=== PATIENT | female | born 1940 | race Caucasian/White ===

== ENCOUNTER 2016-12-08 11:49 | Observation (INO) ==
--- NOTE | 2016-12-08 12:31 | Emergency Department Note ---
Disposition Clinical Impression: Unstable angina pectoris Chest pain Qualifiers: Chest pain type: unspecified Qualified Code(s): R07.9 - Chest pain, unspecified Disposition: Admitted As Inpatient Condition: Fair Time of Disposition: 14:00 Chest Pain HPI - General Chief Complaint: ED Chest Pain Stated Complaint: chest pain Time Seen by Provider: 12/08/16 11:57 Source: patient Mode of arrival: ambulatory Limitations: no limitations Vital Signs Reviewed: Yes Nursing Notes Reviewed: Yes - History of Present Illness HPI Narrative: Patient is a 76-year-old female presents to the emergency department with chest pain with past medical history of atrial fibrillation, diabetes, hypertension, hypertriglyceridemia, and heart stent placed 20 years ago. The patient states the chest pain awoke her at 3 AM this morning from sleep. She describes the pain as left-sided and sharp without radiation. The chest pain occurred at least 3 times throughout the night and lasted for seconds. The last episode being prior to arrival. She describes the chest pain as a 9 out of 10 pain. Nothing makes the pain better or worse. She denies any shortness of breath, cough, back pain, nausea or vomiting or abdominal pain. She states when she woke up from the chest initially she was diaphoretic. When asked about her nitroglycerin allergies she stated that she does not have an allergic reaction her blood pressure just lowers when she takes the medication Pt complaint: chest pain Onset (ago): hour(s) Time: 03:00 Duration: intermittent, gradually worsening Onset: awoke with symptoms Pain Location: left chest Severity: moderate Severity scale (1-10): 9 Quality: sharp Pain Radiation: none Improves with: nothing Worsens with: nothing Associated symptoms: Reports: diaphoresis. Denies: nausea, vomiting, dyspnea, sense of impending doom, syncope, palpitations, fever, cough Treatments prior to arrival chest pain: none - Related Data On Oral Contraceptives: No Home Medications Medication Instructions Recorded Confirmed Aspirin 81 mg PO DAILY 09/30/15 12/08/16 Atenolol [Tenormin] 50 mg PO DAILY 09/30/15 12/08/16 Canagliflozin [Invokana] 100 mg PO DAILY 09/30/15 12/08/16 Gemfibrozil [Lopid] 600 mg PO BID 09/30/15 12/08/16 Glimepiride [Amaryl] 4 mg PO BID 09/30/15 12/08/16 Hydrochlorothiazide [Microzide] 12.5 mg PO DAILY 09/30/15 12/08/16 Metformin HCl [Glucophage] 1,000 mg PO BID 09/30/15 12/08/16 Multivitamin [Multivitamins] 1 tab PO DAILY 09/30/15 12/08/16 NIFEdipine [Nifedipine ER] 30 mg PO DAILY 09/30/15 12/08/16 Ubidecarenone [Coq10] 50 mg PO DAILY 09/30/15 12/08/16 Acetaminophen [Tylenol] 1,000 mg PO Q6HR PRN 07/25/16 12/08/16 Warfarin perPT [Coumadin perPT] 5 mg PO QPM 07/25/16 12/08/16 Allergies Allergy/AdvReac Type Severity Reaction Status Date / Time azithromycin Allergy Hives Verified 06/29/16 04:32 Penicillins Allergy Hives Verified 06/29/16 04:32 ranitidine [From Zantac] Allergy Rash Verified 06/29/16 04:32 nitroglycerin AdvReac Hypotension Verified 12/08/16 14:15 All systems ED: reviewed and negative except as stated. Constitutional: Reports: as per HPI. Denies: fever, chills, weakness Cardiovascular: Reports: as per HPI, chest pain. Denies: palpitations, dyspnea on exertion, orthopnea, edema Respiratory: Reports: as per HPI. Denies: cough, dyspnea, wheezes Gastrointestinal: Reports: as per HPI. Denies: abdominal pain, nausea, vomiting Genitourinary: Reports: as per HPI Musculoskeletal: Reports: as per HPI. Denies: back pain, neck pain Integumentary: Reports: as per HPI Neurological: Reports: as per HPI Psychiatric: Reports: as per HPI Hematological/Lymphatic: Reports: as per HPI Chest Pain PMH - Past Medical History Medical history: Reports: arthritis, atrial fibrillation, coronary artery disease, diabetes, GERD, hyperlipidemia, hypertension Surgical history: Reports: angioplasty/stent, appendectomy, cholecystectomy, ALANNA /BSO Psychiatric history: Reports: no psych history AGRIBUSINESS PROFESSOR history: Reports: no AGRIBUSINESS PROFESSOR history - Social History Smoking Status: Never smoker Alcohol use: Reports: none Drug use: Reports: none Physical Exam - General Limitations: no limitations General appearance: alert, in no apparent distress - Head Head exam: atraumatic, normocephalic - Eye Eye exam: Present: normal appearance, PERRL, EOMI - Neck Neck exam: Present: normal inspection, full ROM, trachea midline - Chest Chest inspection: Present: normal inspection, symmetric chest wall rise. Absent : tenderness, rash - Respiratory Respiratory exam: Present: normal lung sounds bilaterally. Absent: respiratory distress, wheezes, stridor, prolonged expiratory phase - Cardiovascular Cardiovascular exam: Present: regular rate, normal rhythm, normal heart sounds. Absent: systolic murmur, diastolic murmur, rubs, gallop - Expanded Cardiovascular Exam Peripheral pulses: 2+: radial (R), radial (L), dorsalis pedis (R), dorsalis pedis (L) - Abdominal Exam Abdominal exam: Present: soft, Non-Tender, normal bowel sounds. Absent: tenderness, distention, guarding, rebound - Extremities Exam Extremities exam: Present: joint swelling (see other), other (Patient left ankle appears swollen. When asked the patient states she is waiting to have an Achilles tendon transplant that is the cause of the swelling. She denies any changes to the ankle. Denies any calf tenderness.) - Expanded Lower Extremity Exam Upper leg exam: Present: normal inspection - Back Exam Back exam: Present: normal inspection - Neurological Exam Neurological exam: Present: alert, oriented X3 - Psychiatric Psychiatric exam: Present: normal affect, normal mood - Skin Skin exam: Present: warm, dry, normal color. Absent: cyanosis, diaphoresis, pallor Course Course Narrative: Patient is a 76-year-old female presents to the ER with left-sided sharp chest pain that started at 3:00 this morning has been intermittent throughout the night lasting seconds having a total of about 3 episodes. The patient has a past medical history of a coronary artery disease with stent placement greater than 20 years ago, new onset A. fib, diabetes, and hypertriglyceridemia. The patient's EKG showed diffuse ST changes including some chronic and some new T- wave inversions in multiple leads when compared to the previous EKG done in June 2016. The plan is to do a cardiac workup on this patient and admit for ACS rule out. - Reevaluation(s) Reevaluation #1: Discussed the labs, EKG findings and chest x-ray with Mrs. Waggoner. I discussed the need to admit her to the hospital for ACS rule out. The patient understands and agrees with the plan. Her repeat EKG done at 13:24 was unchanged from her previous. Time: 14:00 Vital Signs Temperature 98.1 F 12/08/16 12:04 Pulse Rate 61 12/08/16 12:04 Respiratory Rate 16 12/08/16 12:04 Blood Pressure 147/72 12/08/16 12:04 O2 Sat by Pulse Oximetry 95 12/08/16 12:04 Temperature 97.3 F L 12/08/16 18:40 Pulse Rate 63 12/08/16 18:40 Respiratory Rate 18 12/08/16 18:40 Blood Pressure 125/77 12/08/16 18:40 O2 Sat by Pulse Oximetry 95 12/08/16 18:40 Oxygen Delivery Oxygen Delivery Room Air Chest Pain - Medical Records Medical records reviewed: Yes I reviewed the patient's medical records. - Lab Data Lab results reviewed: Yes I reviewed the patient's lab results. Result diagrams: 12/08/16 12:45 12/08/16 12:45 Lab Results 12/08/16 12/08/16 12/08/16 Range/Units 12:45 12:45 12:45 WBC 6.4 (4.3-11.1) K/mcL RBC 5.42 H (3.82-4.97) M/mcL Hgb 15.8 H (11.5-15.4) g/dL Hct 46.7 H (35.3-44.9) % MCV 86.2 (83.0-100.0) fL MCH 29.2 (28.0-33.3) pg MCHC 33.8 (31.6-35.5) g/dL RDW 13.2 (11.5-14.5) % Plt Count 318 (140-400) K/mcL MPV 9.6 (9.4-12.4) fL Immature Gran % 0.3 (0-4) % Seg Neutrophils % 57.6 % Lymphocytes % 31.4 % Monocytes % 9.6 % Eosinophils % 0.6 % Basophils % 0.5 % Neutrophils # 3.7 (1.6-8.9) K/mcL Lymphocytes # 2.0 (0.6-4.6) K/mcL Monocytes # 0.6 (0.0-1.3) K/mcL Eosinophils # 0.0 (0.0-0.6) K/mcL Basophils # 0.0 (0.0-0.2) K/mcL PT (9.4-12.1) Seconds INR Sodium 139 (136-145) mEq/L Potassium 3.4 L (3.5-4.5) mEq/L Chloride 101 (98-109) mEq/L Carbon Dioxide 26 (19-29) mEq/L BUN 19 (7-20) mg/dL Creatinine 0.80 (0.57-1.11) mg/dL Est GFR ( Amer) > 60 (> 60) Est GFR (Non-Af Amer) > 60 (> 60) BUN/Creatinine Ratio 24 (6-26) Glucose 154 H (70-99) mg/dL Calculated Osmolality 293 (280-300) Calcium 11.2 H (8.6-10.8) mg/dL Troponin I 0.00 (0-0.03) ng/mL 12/08/16 Range/Units 12:45 WBC (4.3-11.1) K/mcL RBC (3.82-4.97) M/mcL Hgb (11.5-15.4) g/dL Hct (35.3-44.9) % MCV (83.0-100.0) fL MCH (28.0-33.3) pg MCHC (31.6-35.5) g/dL RDW (11.5-14.5) % Plt Count (140-400) K/mcL MPV (9.4-12.4) fL Immature Gran % (0-4) % Seg Neutrophils % % Lymphocytes % % Monocytes % % Eosinophils % % Basophils % % Neutrophils # (1.6-8.9) K/mcL Lymphocytes # (0.6-4.6) K/mcL Monocytes # (0.0-1.3) K/mcL Eosinophils # (0.0-0.6) K/mcL Basophils # (0.0-0.2) K/mcL PT 30.7 H (9.4-12.1) Seconds INR 2.8 Sodium (136-145) mEq/L Potassium (3.5-4.5) mEq/L Chloride (98-109) mEq/L Carbon Dioxide (19-29) mEq/L BUN (7-20) mg/dL Creatinine (0.57-1.11) mg/dL Est GFR ( Amer) (> 60) Est GFR (Non-Af Amer) (> 60) BUN/Creatinine Ratio (6-26) Glucose (70-99) mg/dL Calculated Osmolality (280-300) Calcium (8.6-10.8) mg/dL Troponin I (0-0.03) ng/mL - Radiology Data Radiology results reviewed: Yes I reviewed the patient's radiology results. Chest X-Ray 12/08/16 12:20 IMPRESSION: Stable chest. No acute cardiopulmonary findings. D/ / Christi Pearson MD / Christi Pearson MD Interpreting Provider: Christi Pearson MD - EKG Data EKG attestation: Yes I reviewed and interpreted this EKG. EKG shows normal: sinus rhythm Rate: normal Rhythm: NSR [place]/QRS: normal T wave inversions noted in: I, aVL, v2, v5, v6 QTc: other (444) When compared to previous EKG there are: changes noted (T-wave inversions new in lead V2 and V5 and V6 that are new from her last EKG that was done on 2016) Heart Score - Score History: Highly Suspicious EKG: Significant ST-Depression Age: Greater than 65 Risk Factors: Equal/Greater than 3 risk factor or history of atherosclerotic disease Troponin: Less than normal limit HEART Score Total: 8 S.B.A.R. - Raphael Situation: Demographics Background: Presenting Complaint Assessment: Vital Signs, Course and respsone to treatment, Patient/Family Expectation, Pertinant Lab Results S.B.A.ROzzie Report Given to: Dr. Major Lim Repor Time: 13:59
[2016-12-08] MEDS ORDERED: Aspirin 81 MG TAB.CHEW PO STA (12:33)
[2016-12-08] MEDS ORDERED: Nitroglycerin 0.4 MG TAB.SUBL SL PRN (12:38)
[2016-12-08 12:53] LABS: Basophils % 0.5 %; Eosinophils % 0.6 %; Hematocrit 46.7 % (35.3-44.9); Hemoglobin 15.8 g/dL (11.5-15.4); Immature Granulocytes % 0.3 % (0-4); Lymphocytes % 31.4 %; Mean Corpuscular HGB Conc 33.8 g/dL (31.6-35.5); Mean Corpuscular Hemoglobin 29.2 pg (28.0-33.3); Mean Corpuscular Volume 86.2 fL (83.0-100.0); Mean Platelet Volume 9.6 fL (9.4-12.4); Monocytes # 0.6 K/mcL (0.0-1.3); Monocytes % 9.6 %; Neutrophils # 3.7 K/mcL (1.6-8.9); Platelet Count 318 K/mcL (140-400); Red Blood Count 5.42 M/mcL (3.82-4.97); Red Cell Distribution Width 13.2 % (11.5-14.5); Segmented Neutrophils % 57.6 %
--- NOTE | 2016-12-08 12:59 | Emergency Department Note ---
START Narrative - START START: I examined this patient and my medical decision-making was reviewed with the PLATFORM POWER TECHNICIAN/PA/Advanced Practice Nurse/Resident Physician. I agree with the documented findings, disposition and treatment plan as described except to the extent set forth below. Patient to the emergency department with a chief complaint of chest pain. Sharp. She describes 3 episodes today. History coronary disease with a stent placement 21 years ago. Recently diagnosed with A. fib. She is anticoagulated. Denies shortness of breath. She is pain-free on my evaluation. On examination she is in no acute distress. Her lungs are clear. Her pain is not reproducible. Plan. Cardiac workup. EKG shows extensive ST changes. Mostly these are chronic but there are some new acute T-wave inversions. Repeat EKG. Likely admission.
[2016-12-08 13:04] LABS: BUN/Creatinine Ratio 24 (6-26); Blood Urea Nitrogen 19 mg/dL (7-20); Calcium 11.2 mg/dL (8.6-10.8); Carbon Dioxide 26 mEq/L (19-29); Chloride 101 mEq/L (98-109); Glucose 154 mg/dL (70-99); INR 2.8; Osmolality,Calculated 293 (280-300); Potassium 3.4 mEq/L (3.5-4.5); Prothrombin Time 30.7 Seconds (9.4-12.1); Sodium 139 mEq/L (136-145); eGFR For African Americans > 60 (> 60); eGFR For Non-African Americans > 60 (> 60)
--- NOTE | 2016-12-08 16:46 | Internal Med History&Physical ---
<Piotr Bentley - Last Filed: 12/08/16 17:05> Date of Encounter: 12/08/16 Time of Encounter: 16:20 Assessment and Plan (1) Chest pain Current visit: Yes Status: Acute Nuclear stress test has been ordered. -Patient has a significant history of CAD. -Must rule out cardiac ischemia. -EKG changes are significant for diffuse ST changes, as well as inverted T waves , likely due to an old infarct. -Continue medications; Patient takes atenolol and aspirin. Qualifiers: Chest pain type: unspecified Qualified Code(s): R07.9 - Chest pain, unspecified (2) Atrial fibrillation Current visit: Yes Status: Acute Continue taking medications. Patient takes both atenolol and aspirin. Qualifiers: Qualified Code(s): I48.91 - Unspecified atrial fibrillation (3) Essential hypertension Current visit: No Status: Chronic (4) Diabetes mellitus, type II Current visit: No Status: Chronic Patient is diabetic home meds have been held for the time being. Patient will be placed on insulin, and blood glucose will be monitored on a regular basis. Qualifiers: Diabetes mellitus complication status: with circulatory complication Diabetes mellitus complication detail: with other circulatory complications Qualified Code(s): E11.59 - Type 2 diabetes mellitus with other circulatory complications (5) Diastolic heart failure Current visit: Yes Status: Acute Patient has moderate left ventricular diastolic dysfunction. Qualifiers: Qualified Code(s): I50.30 - Unspecified diastolic (congestive) heart failure Internal Medicine - H&P: HPI Chief complaint: Chest Pain Admitted From: Emergency Dept Plans for Post Hospital Care: Home History of present illness: Ms. Waggoner is a 76 year old female who presented to the emergency department with a chief complaint of chest pain. She states that this pain began approximately 3 AM and woke her from sleep. She describes this pain as short, intermittent bursts of sharp, left-sided chest pain. Each episode would last for several seconds, would subside, and then continue again. These episodes happened a total of 3 times before she came to the ED at approximately 7 AM. She rated her pain at 9/10. Nothing makes her pain better or worse. On admission, she denies shortness of breath, cough, back pain, nausea, vomiting, or abdominal pain. She does say that she experienced some sweating when she woke up at night. She denies having any pain like this before. She has had a heart attack in the past, but states that the pain associated with her previous heart attack was somewhat different from the pain she is experiencing now. Patient states that she had several more episodes of pain while she was in the emergency department, but that after she left the ED, she did not experience any more episodes of chest pain. Patient was seen and examined at bedside this afternoon. She currently denies having any chest pain, shortness of breath, nausea, vomiting, sweating, or abdominal pain. Past Med Surg Social Fam HX - Past Medical History Medical history: arthritis, atrial fibrillation, coronary artery disease, diabetes, GERD, hyperlipidemia, hypertension Psychiatric history: no psych history - Past Surgical History Surgical History: angioplasty/stent, appendectomy, cholecystectomy, ALANNA/BSO - Social History Smoking Status: Never smoker Alcohol use: none Drug use: none Activity Level: Independent ambulation - Family History Mother Living Status: Cause of : Colon Cancer Father Living Status: Cause of : Renal Cancer Hx Family Cardiac Disorders: Yes (Father had CAD) Internal Medicine - H&P: Meds Aspirin 81 mg PO DAILY 09/30/15 [History] Atenolol [Tenormin] 50 mg PO DAILY 09/30/15 [History] Canagliflozin [Invokana] 100 mg PO DAILY 09/30/15 [History] Gemfibrozil [Lopid] 600 mg PO BID 09/30/15 [History] Glimepiride [Amaryl] 4 mg PO BID 09/30/15 [History] Hydrochlorothiazide [Microzide] 12.5 mg PO DAILY 09/30/15 [History] Metformin HCl [Glucophage] 1,000 mg PO BID 09/30/15 [History] Multivitamin [Multivitamins] 1 tab PO DAILY 09/30/15 [History] NIFEdipine [Nifedipine ER] 30 mg PO DAILY 09/30/15 [History] Ubidecarenone [Coq10] 50 mg PO DAILY 09/30/15 [History] Acetaminophen [Tylenol] 1,000 mg PO Q6HR PRN 07/25/16 [History] Warfarin perPT [Coumadin perPT] 5 mg PO QPM 07/25/16 [History] Allergies azithromycin Allergy (Verified 06/29/16 04:32) Hives Penicillins Allergy (Verified 06/29/16 04:32) Hives ranitidine [From Zantac] Allergy (Verified 06/29/16 04:32) Rash nitroglycerin Adverse Reaction (Verified 12/08/16 14:15) Hypotension All Systems PM: A 10-system review of systems was performed and is negative for pertinent findings except as documented above in the HPI. - Constitutional Constitutional: night sweats Additional comments: Patient states that she did experience some sweating when she woke up from her chest pain. - EENT Eyes: no change in vision Nose, mouth and throat: no dysphagia, no neck pain - Cardiovascular Cardiovascular ROS IM: no chest pain, no diaphoresis, no dyspnea, no lightheadedness, no palpitations, no syncope Additional comments: Patient currently denies having any chest pain. - Respiratory Respiratory: no cough, no dyspnea, no wheezing, no excessive phlegm production - Gastrointestinal Gastrointestinal: no nausea, no vomiting - Musculoskeletal Musculoskeletal ROS IM: deformity Additional comments: Patient does have a deformity on her Achilles tendon. The area is swollen, and patient is awaiting transplant. - Constitutional Vitals: Temp Pulse Resp BP Pulse Ox 97.8 F 54 15 126/75 96 12/08/16 15:18 12/08/16 15:18 12/08/16 15:18 12/08/16 15:18 12/08/16 15:18 - Head Head exam: Present: atraumatic, normocephalic - Neck Neck exam general surgery: Present: supple, trachea midline. Absent: lymphadenopathy - Respiratory Respiratory exam: Present: CTAB. Absent: accessory muscle use, rales, rhonchi, wheezes - Cardiovascular Cardiovascular exam: Present: RRR, +S1, +S2. Absent: diastolic murmur, gallop, rubs, systolic murmur - GI/Abdominal GI/Abdominal exam: Present: normal bowel sounds, soft, no peritoneal signs. Absent: distended, tenderness - Extremities Exam Extremities exam: Present: warm, radial pulses palpable and symetrical. Absent : calf tenderness, cyanotic, pedal edema - Skin Skin exam: Present: dry, intact Internal Med - H&P Results - Labs CBC & Chem 7: 12/08/16 12:45 12/08/16 12:45 <Maciel Golden - Last Filed: 12/08/16 19:52> Date of Encounter: 12/08/16 Assessment and Plan (1) Atypical chest pain Current visit: Yes Status: Acute (2) Atrial fibrillation Current visit: Yes Status: Acute Qualifiers: Atrial fibrillation type: chronic Qualified Code(s): I48.2 - Chronic atrial fibrillation (3) Diastolic heart failure Current visit: Yes Status: Acute Qualifiers: Heart failure chronicity: chronic Qualified Code(s): I50.32 - Chronic diastolic (congestive) heart failure (4) Diabetes mellitus, type II Current visit: No Status: Chronic Qualifiers: Diabetes mellitus complication status: with circulatory complication Diabetes mellitus complication detail: with other circulatory complications Qualified Code(s): E11.59 - Type 2 diabetes mellitus with other circulatory complications Internal Medicine - H&P: HPI History of present illness: Ms. Waggoner is a 76 year old female All Systems PM: A 10-system review of systems was performed and is negative for pertinent findings except as documented above in the HPI. - Constitutional Vitals: Temp Pulse Resp BP Pulse Ox 97.3 F L 63 18 125/77 95 12/08/16 18:40 12/08/16 18:40 12/08/16 18:40 12/08/16 18:40 12/08/16 18:40 Internal Med - H&P Results - Labs CBC & Chem 7: 12/08/16 12:45 12/08/16 12:45 - Attending Attestation I examined this patient and my medical decision-making was reviewed with the Resident Physician on 12/08/16. I agree with the documented findings, disposition and treatment plan as described except to the extent set forth below. 76 y/o female with hx CAD presents with atypical chest pain. Intermittent and sharp with no associated symptoms. No worsening or alleviating factors. Recurred in ED so placed in observation. Exam Alert. Comfortable Mucus membranes moist Heart reg Lungs clear Abd soft No edema I/P 1. Atypical chest pain 2. CAD 3. a fib on coumadin 4. DM Stress test in AM. Further diagnoses and plan as above.
[2016-12-08] MEDS ORDERED: Acetaminophen 325 MG TABLET PO PRN (16:52)
[2016-12-08] MEDS ORDERED: Dextrose Gel 15 GM PO PRN ×2 (16:56)
[2016-12-08] MEDS ORDERED: *HR* Dextrose 50 % in Water (Syg) 50 ML SYRINGE IVP PRN (16:56)
[2016-12-08] MEDS ORDERED: D5% in Water 1,000 ML IVC PRN (16:56)
[2016-12-08] MEDS ORDERED: *HR* Warfarin 5 MG TABLET PO SCH (18:00)
[2016-12-08] MEDS ORDERED: Warfarin perPT PO SCH (18:00)
[2016-12-08] MEDS ORDERED: Warfarin perPT PO PRN (18:00)
[2016-12-08] MEDS: *HR* Glimepiride 4 MG TABLET PO SCH (19:11)
[2016-12-08] MEDS ORDERED: Insulin LISPRO 300 UNITS/3 ML VIAL SQ SCH (21:00)
[2016-12-09] MEDS ORDERED: Regadenoson 0.4 MG/5 ML SYRINGE IVP ONE (06:59)
[2016-12-09] MEDS ORDERED: Insulin LISPRO 300 UNITS/3 ML VIAL SQ SCH (07:30)
[2016-12-09] MEDS ORDERED: NIFEdipine XL (24 HR) 30 MG TAB.ER.24 PO SCH (09:00)
[2016-12-09] MEDS ORDERED: Multivit/Ca/Min/Fe/FA 1 TAB TABLET PO SCH (09:00)
[2016-12-09] MEDS ORDERED: (Ubidecarenone [Coq10] 50 MG) PO SCH (09:00)
[2016-12-09] MEDS ORDERED: Aspirin 81 MG TAB.CHEW PO SCH (09:00)
[2016-12-09] MEDS ORDERED: hydroCHLOROthiazide 25 MG TABLET PO SCH (09:00)
[2016-12-09 10:13] LABS: INR 2.5; Prothrombin Time 27.5 Seconds (9.4-12.1)
[2016-12-09] MEDS: *HR* Glimepiride 4 MG TABLET PO SCH (10:43)
[2016-12-09 11:01] VITALS: BP 143/83
--- NOTE | 2016-12-09 11:06 | Nuclear Medicine Stress Report ---
Regadenoson Nuclear Stress Name: Vicki Waggoner Date of Study: 12/09/2016 Date: 1940 Ht: 62.0 in Medical Record#: [id number] Age: 76 Wt: 164.0 lb Gender: Female Order #: [id number] Location: [facility] Room: [facility] Supervising Provider: Janusz Reynolds CNP Reading Physician: Telly Leon MD, [facility] Ordering Physician: Niecy Field CNP Primary Care Physician: Sheldon Joiner DO Stress Technologist: Samantha Weeks SUPERVISOR [employer], [employer] Fisheries Biologist: Clau Castano Indications: Chest Pain Impression: Non-specific ST-T wave changes were noted with regadenoson. Gated LVEF > 70%. Perfusion imaging was negative for ischemia or infarct. History: Hypertension Diabetes Hypercholesteremia Prior PCI Stress Test Summary: Stress Test Type: Pharmacologic Regadenoson 0.4mg/5ml given IV Baseline Information: Initial Heart Rate: 56 Blood Pressure: 130/72 Stress Information: Test Terminated Due to (primary): As per protocol Maximum Blood Pressure: 152/76 Maximum Heart Rate: 86 Percent Maximum Heart Rate Achieved: 60 Double Product: [id number] Symptoms: No chest pain Nuclear Summary: SPECT myocardial perfusion imaging using Tc99m Sestamibi given intravenously was performed at rest and following cardiac stress testing. The resting images were obtained following initial dose of 11.3 mCi. Following stress an additional dose of 35.3 mCi was given at peak exercise or 30 seconds post regadenoson infusion. Findings: Stress Note * Resting ECG demonstrated sinus bradycardia, lateral ST-T wave abnormalities. * No baseline arrhythmias were noted. * Patient had no chest pain during stress. * No arrhythmias were noted during stress. * Non-specific ST-T wave changes were noted with regadenoson. Hemodynamic responses * Normal hemodynamic responses to pharmacologic stress. Study Quality * Study quality is average. Gated EF > 70% * Gated LVEF > 70%. Left Ventricle * The left ventricle is not dilated. * Normal Segmental Perfusion in rest. * Normal segmental perfusion in stress. * Inferior wall artifact noted on resting images. TID * No evidence of transient ischemic dilatation. Updated by Telly Leon MD, [facility] on 12/09/2016 11:01:51 AM electronically signed on 12/09/2016 11:02:13 AM with status of Final
--- NOTE | 2016-12-09 11:56 | Discharge Summary ---
Date of Encounter: 12/09/16 Time of Encounter: 11:54 - Discharge Diagnosis (1) Chest pain Priority: Primary Status: Acute Qualifiers: Chest pain type: unspecified Qualified Code(s): R07.9 - Chest pain, unspecified (2) Atrial fibrillation Priority: Secondary Status: Chronic Qualifiers: Atrial fibrillation type: chronic Qualified Code(s): I48.2 - Chronic atrial fibrillation (3) Diabetes mellitus, type II Priority: Secondary Status: Chronic Qualifiers: Diabetes mellitus complication status: with circulatory complication Diabetes mellitus complication detail: with other circulatory complications Diabetes mellitus alf insulin use: without alf use Qualified Code( s): E11.59 - Type 2 diabetes mellitus with other circulatory complications (4) Diastolic heart failure Priority: Secondary Status: Chronic Qualifiers: Heart failure chronicity: chronic Qualified Code(s): I50.32 - Chronic diastolic (congestive) heart failure (5) Essential hypertension Priority: Secondary Status: Chronic - Discharge Medications Prescriptions: Ezetimibe [Zetia] 10 mg PO DAILY #30 tablet Metoprolol XL (24 HR) Succ [Toprol Xl] 25 mg PO DAILY #30 tab.er.24h Home Medications: Aspirin 81 mg PO DAILY 09/30/15 [History] Canagliflozin [Invokana] 100 mg PO DAILY 09/30/15 [History] Gemfibrozil [Lopid] 600 mg PO BID 09/30/15 [History] Glimepiride [Amaryl] 4 mg PO BID 09/30/15 [History] Hydrochlorothiazide [Microzide] 12.5 mg PO DAILY 09/30/15 [History] Metformin HCl [Glucophage] 1,000 mg PO BID 09/30/15 [History] Multivitamin [Multivitamins] 1 tab PO DAILY 09/30/15 [History] NIFEdipine [Nifedipine ER] 30 mg PO DAILY 09/30/15 [History] Ubidecarenone [Coq10] 50 mg PO DAILY 09/30/15 [History] Acetaminophen [Tylenol] 1,000 mg PO Q6HR PRN 07/25/16 [History] Warfarin perPT [Coumadin perPT] 5 mg PO QPM 07/25/16 [History] Ezetimibe [Zetia] 10 mg PO DAILY #30 tablet 12/09/16 [Rx] Metoprolol XL (24 HR) Succ [Toprol Xl] 25 mg PO DAILY #30 tab.er.24h 12/09/16 [ Rx] Allergies/Adverse Reactions: Allergies azithromycin Allergy (Verified 06/29/16 04:32) Hives Penicillins Allergy (Verified 06/29/16 04:32) Hives ranitidine [From Zantac] Allergy (Verified 06/29/16 04:32) Rash nitroglycerin Adverse Reaction (Verified 12/08/16 14:15) Hypotension Procedures/tests Complete & Pending: Procedures Performed prior 72 hours Category Date Time Status NM deric perf SPECT multi [NM] Routine Exams 12/08/16 17:03 Taken SP pharm nuclear stress Routine Y 12/09/16 07:45 Completed Date of admission: 12/08/16 14:03 Primary care physician: Kit Joiner - Patient Status Disposition: Home, Self-Care Condition: Good Functional capacity at discharge: independent ambulation Overall status at discharge: patient is progressing back to baseline - Discharge Instructions Instructions: Metoprolol (By mouth), Ezetimibe (By mouth), Atrial Fibrillation (DC), Chest Pain (DC) Follow Up With: Clau Ding [employer] [Advanced Practice Nurse] - 12/15/16 11:00 am - Diet and Activity Activity: resume usual activities as tolerated Diet: diabetic diet, low fat, low cholesterol, low salt diet Interval History: Patient reports an episode of left-sided chest pain earlier this morning that lasted a few seconds. She denies any chest pain at this time. No shortness of breath. She has been ambulating and eating well. She is eager to go home. Hospital course: Ms. Waggoner is a 76 year old female with a past medical history of atrial fibrillation, CAD, diabetes and hypertension who presented with a chief complaint of atypical chest pain. Troponins were negative. EKG showed no acute ischemic changes. Impression no acute process. She underwent her stress test that was negative. She was continued on aspirin and her atenolol was switched to metoprolol. She was prescribed zetia. Plan: Follow-up with primary care physician in one week. - Time Spent with Patient Total time spent providing and/or coordinating discharge services: - Constitutional Vitals: Temp Pulse Resp BP Pulse Ox 97.5 F L 65 16 143/83 95 12/09/16 11:01 12/09/16 11:01 12/09/16 11:01 12/09/16 11:01 12/09/16 11:01 General appearance: Present: cooperative, A&O X 3, pleasant, no acute distress, answers questions appropriately - Eye Eye exam: Present: PERRL, sclera anicteric - Respiratory Respiratory exam: Present: CTAB - Cardiovascular Cardiovascular exam: Present: RRR - GI/Abdominal GI/Abdominal exam: Present: normal bowel sounds, soft. Absent: distended, tenderness - Extremities Exam Extremities exam: Absent: pedal edema - Back Exam Back exam: Absent: CVA tenderness (L), CVA tenderness (R) - Neurological Exam Neurological exam: Present: alert, oriented X3, no focal deficits, strengths equal and symetr throughout. Absent: facial droop, speech deficit - Skin Skin exam: Absent: rash
--- NOTE | 2016-12-09 16:11 | Electrocardiograph Report ---
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
--- NOTE | 2016-12-09 16:12 | Electrocardiograph Report ---
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
== END 2016-12-09 14:00 | disposition home or self-care (01) ==
LOC: EMEROO 11:49 → 3BNU 11:49 → SUATTDRO 14:03 → 3BNU 15:00
PROVIDERS: ADMIT Internal Medicine; ATTEND Internal Medicine

== ENCOUNTER 2020-09-28 17:16 | Inpatient (IN) ==
[2020-09-28] MEDS ORDERED: 0.9 % Sodium Chloride 500 ML IVC ONE (17:34)
[2020-09-28] MEDS ORDERED: Aspirin 81 MG TAB.CHEW PO ONE (17:42)
[2020-09-28 17:57] LABS: Basophils % 0.4 %; Eosinophils % 0.7 %; Hematocrit 42.8 % (35.3-44.9); Hemoglobin 14.2 g/dL (11.5-15.4); Immature Granulocytes % 0.4 % (0-4); Lymphocytes % 36.9 %; Mean Corpuscular HGB Conc 33.2 g/dL (31.6-35.5); Mean Corpuscular Hemoglobin 29.6 pg (28.0-33.3); Mean Corpuscular Volume 89.4 fL (83.0-100.0); Mean Platelet Volume 9.6 fL (9.4-12.4); Monocytes # 0.5 K/mcL (0.0-1.3); Monocytes % 9.2 %; Neutrophils # 2.8 K/mcL (1.6-8.9); Platelet Count 299 K/mcL (140-400); Red Blood Count 4.79 M/mcL (3.82-4.97); Red Cell Distribution Width 12.9 % (11.5-14.5); Segmented Neutrophils % 52.4 %; White Blood Count 5.4 K/mcL (4.3-11.1)
[2020-09-28 18:04] LABS: INR 2.5
[2020-09-28 18:06] LABS: Activated Partial Thrombo Time 65.9 Seconds (26.0-36.0)
[2020-09-28 18:15] LABS: BUN/Creatinine Ratio 24 (6-26); Blood Urea Nitrogen 22 mg/dL (8-23); Calcium 10.8 mg/dL (8.6-10.3); Carbon Dioxide 26 mEq/L (23-29); Chloride 99 mEq/L (98-107); Glucose 308 mg/dL (70-105); Osmolality,Calculated 299 (280-300); Potassium 3.6 mEq/L (3.5-5.1); Sodium 137 mEq/L (136-145); Troponin I < 0.03 ng/mL (< 0.04); eGFR For African Americans > 60 (> 60); eGFR For Non-African Americans > 60 (> 60)
[2020-09-28] MEDS ORDERED: Perflutren Lipid Microsphere 1.3 ML in 0.9 % Sodium Chloride 8.7 ML IVP PRN (20:21)
[2020-09-28] MEDS ORDERED: D5% in Water 1,000 ML IVC PRN (20:26)
[2020-09-28] MEDS ORDERED: *HR* Dextrose 50 % in Water (Vial) 50 ML VIAL IVP PRN (20:26)
[2020-09-28] MEDS ORDERED: Dextrose Gel 15 GM/37.5 ML TUBE PO PRN ×2 (20:26)
[2020-09-28] MEDS ORDERED: Ondansetron 4 MG/2 ML VIAL IVP PRN (20:39)
[2020-09-28] MEDS ORDERED: Naloxone 0.4 MG/ML INJ IVP PRN (20:39)
[2020-09-28] MEDS ORDERED: Melatonin 3 MG TABLET PO PRN (20:39)
[2020-09-28 21:14] LABS: INR 2.3; Prothrombin Time 26.5 Seconds (9.4-12.1)
[2020-09-28 21:16] LABS: Estimated Average Glucose 189 mg/dl; Hemoglobin A1C 8.2 %
[2020-09-28] MEDS: Insulin LISPRO 300 UNITS/3 ML VIAL SUBQ SCH (22:12)
[2020-09-28] MEDS: gemfibroziL 600 MG TABLET PO SCH (22:12)
[2020-09-28] MEDS: Mag Hydrox/Al Hydrox/Simeth 30 ML UDC PO PRN (22:23)
[2020-09-29 00:50] LABS: Basophils # 0.1 K/mcL (0.0-0.2); Basophils % 0.7 %; Eosinophils # 0.1 K/mcL (0.0-0.6); Hematocrit 40.2 % (35.3-44.9); Hemoglobin 12.7 g/dL (11.5-15.4); Immature Granulocytes % 0.4 % (0-4); Lymphocytes # 2.6 K/mcL (0.6-4.6); Lymphocytes % 36.7 %; Mean Corpuscular HGB Conc 31.6 g/dL (31.6-35.5); Mean Corpuscular Hemoglobin 28.8 pg (28.0-33.3); Mean Corpuscular Volume 91.2 fL (83.0-100.0); Mean Platelet Volume 9.7 fL (9.4-12.4); Monocytes # 0.8 K/mcL (0.0-1.3); Monocytes % 11.5 %; Neutrophils # 3.5 K/mcL (1.6-8.9); Platelet Count 290 K/mcL (140-400); Red Blood Count 4.41 M/mcL (3.82-4.97); Segmented Neutrophils % 49.7 %; White Blood Count 7.1 K/mcL (4.3-11.1)
[2020-09-29 00:51] LABS: BUN/Creatinine Ratio 28 (6-26); Blood Urea Nitrogen 23 mg/dL (8-23); Carbon Dioxide 26 mEq/L (23-29); Chloride 103 mEq/L (98-107); Chol/HDL Ratio 7.1 (0-4.9); Cholesterol 212 mg/dL (< 200); Glucose 186 mg/dL (70-105); HDL Cholesterol 30 mg/dL (40-59); LDL Cholesterol,Calculated 120 mg/dL (< 100); Osmolality,Calculated 295 (280-300); Potassium 3.6 mEq/L (3.5-5.1); Sodium 138 mEq/L (136-145); Triglycerides 311 mg/dL (< 150); eGFR For African Americans > 60 (> 60); eGFR For Non-African Americans > 60 (> 60)
[2020-09-29 00:56] LABS: INR 2.3
[2020-09-29] MEDS ORDERED: Regadenoson 0.4 MG/5 ML SYRINGE IVP ONE (06:51)
[2020-09-29] MEDS ORDERED: Ubidecarenone [Coq10] 50 MG PO SCH (09:00)
[2020-09-29] MEDS: Insulin LISPRO 300 UNITS/3 ML VIAL SUBQ SCH ×4 (10:19→21:14)
[2020-09-29] MEDS: Aspirin 81 MG TAB.CHEW PO SCH (10:24)
[2020-09-29] MEDS: hydroCHLOROthiazide 25 MG TABLET PO SCH (10:24)
[2020-09-29] MEDS: gemfibroziL 600 MG TABLET PO SCH (10:24)
[2020-09-29] MEDS: Isosorbide MONOnitrate (24 HR) 30 MG TAB.ER.24H PO SCH (12:14)
[2020-09-29] MEDS ORDERED: Warfarin perPT PO PRN (18:00)
[2020-09-29] MEDS ORDERED: *HR* Warfarin 5 MG TABLET PO ONE (18:00)
[2020-09-29] MEDS: Acetaminophen 325 MG TABLET PO PRN (21:18)
[2020-09-30 03:30] LABS: Hematocrit 38.7 % (35.3-44.9); Hemoglobin 12.6 g/dL (11.5-15.4); Mean Corpuscular HGB Conc 32.6 g/dL (31.6-35.5); Mean Corpuscular Hemoglobin 29.2 pg (28.0-33.3); Mean Corpuscular Volume 89.8 fL (83.0-100.0); Mean Platelet Volume 9.5 fL (9.4-12.4); Platelet Count 285 K/mcL (140-400); Red Blood Count 4.31 M/mcL (3.82-4.97); Red Cell Distribution Width 12.9 % (11.5-14.5); White Blood Count 5.7 K/mcL (4.3-11.1)
[2020-09-30 03:37] LABS: INR 1.8; Prothrombin Time 20.9 Seconds (9.4-12.1)
[2020-09-30 03:50] LABS: Alanine Aminotransferase 25 Units/L (7-52); Albumin 3.9 g/dL (3.5-5.7); Albumin/Globulin Ratio 1.5 (1.1-2.2); Alkaline Phosphatase 42 Units/L (34-104); Aspartate Amino Transferase 24 Units/L (13-39); BUN/Creatinine Ratio 37 (6-26); Bilirubin,Total 0.5 mg/dL (0.3-1.0); Blood Urea Nitrogen 25 mg/dL (8-23); Calcium 10.2 mg/dL (8.6-10.3); Carbon Dioxide 23 mEq/L (23-29); Chloride 105 mEq/L (98-107); Globulin 2.6 g/dL (2.4-3.5); Glucose 136 mg/dL (70-105); Osmolality,Calculated 296 (280-300); Potassium 3.4 mEq/L (3.5-5.1); Sodium 140 mEq/L (136-145); Total Protein 6.5 g/dL (6.4-8.9); eGFR For African Americans > 60 (> 60); eGFR For Non-African Americans > 60 (> 60)
[2020-09-30] MEDS: hydroCHLOROthiazide 25 MG TABLET PO SCH (08:58)
[2020-09-30] MEDS: Aspirin 81 MG TAB.CHEW PO SCH (08:59)
[2020-09-30] MEDS: Isosorbide MONOnitrate (24 HR) 30 MG TAB.ER.24H PO SCH (08:59)
[2020-09-30] MEDS: Metoprolol XL (24 HR) Succ 25 MG TAB.ER.24H PO SCH (08:59)
[2020-09-30] MEDS: Insulin LISPRO 300 UNITS/3 ML VIAL SUBQ SCH ×4 (09:03→21:26)
[2020-09-30] MEDS: Mag Hydrox/Al Hydrox/Simeth 30 ML UDC PO PRN (17:00)
[2020-09-30] MEDS: Acetaminophen 325 MG TABLET PO PRN (21:26)
[2020-10-01 02:33] LABS: Hematocrit 38.9 % (35.3-44.9); Hemoglobin 12.6 g/dL (11.5-15.4); Mean Corpuscular HGB Conc 32.4 g/dL (31.6-35.5); Mean Corpuscular Hemoglobin 28.9 pg (28.0-33.3); Mean Corpuscular Volume 89.2 fL (83.0-100.0); Mean Platelet Volume 9.5 fL (9.4-12.4); Platelet Count 281 K/mcL (140-400); Red Blood Count 4.36 M/mcL (3.82-4.97); Red Cell Distribution Width 12.8 % (11.5-14.5); White Blood Count 6.3 K/mcL (4.3-11.1)
[2020-10-01 02:39] LABS: INR 1.4; Prothrombin Time 16.2 Seconds (9.4-12.1)
[2020-10-01 02:53] LABS: Alanine Aminotransferase 27 Units/L (7-52); Albumin 4.2 g/dL (3.5-5.7); Albumin/Globulin Ratio 1.5 (1.1-2.2); Alkaline Phosphatase 47 Units/L (34-104); Aspartate Amino Transferase 26 Units/L (13-39); BUN/Creatinine Ratio 39 (6-26); Bilirubin,Total 0.6 mg/dL (0.3-1.0); Blood Urea Nitrogen 30 mg/dL (8-23); Calcium 10.5 mg/dL (8.6-10.3); Carbon Dioxide 22 mEq/L (23-29); Chloride 103 mEq/L (98-107); Globulin 2.8 g/dL (2.4-3.5); Glucose 151 mg/dL (70-105); Osmolality,Calculated 293 (280-300); Potassium 3.6 mEq/L (3.5-5.1); Sodium 137 mEq/L (136-145); eGFR For African Americans > 60 (> 60); eGFR For Non-African Americans > 60 (> 60)
[2020-10-01] MEDS: Insulin LISPRO 300 UNITS/3 ML VIAL SUBQ SCH ×3 (08:50→17:32)
[2020-10-01] MEDS: Metoprolol XL (24 HR) Succ 25 MG TAB.ER.24H PO SCH (09:01)
[2020-10-01] MEDS: hydroCHLOROthiazide 25 MG TABLET PO SCH (09:01)
[2020-10-01] MEDS: Isosorbide MONOnitrate (24 HR) 30 MG TAB.ER.24H PO SCH (09:02)
[2020-10-01] MEDS: Aspirin 81 MG TAB.CHEW PO SCH (09:02)
[2020-10-01] MEDS ORDERED: Nitroglycerin 1,000 MCG/5 ML VIAL IV ONE (10:06)
[2020-10-01] MEDS ORDERED: Heparin 1,000 UNITS/500 mL 500 ML ONE (10:06)
[2020-10-01] MEDS ORDERED: *HR* Heparin 10,000 UNIT/10 ML VIAL ONE (10:06)
[2020-10-01] MEDS ORDERED: 0.9 % Sodium Chloride 2,000 ML ONE (10:06)
[2020-10-01] MEDS ORDERED: ISOVUE-370 200 ML INFUS..BTL ONE ×2 (10:06→11:10)
[2020-10-01] MEDS ORDERED: *HR* Midazolam HCl 2 MG/2 ML VIAL ONE (10:26)
[2020-10-01] MEDS ORDERED: *HR* FentaNYL (PF) 100 MCG/2 ML VIAL ONE (10:26)
[2020-10-01] MEDS ORDERED: Tirofiban 12.5 MG/250ML 12.5 MG/250 ML BAG ONE (11:07)
[2020-10-01] MEDS ORDERED: Tirofiban 12.5 MG/250ML 12.5 MG/250 ML BAG IVC SCH (11:45)
[2020-10-01] MEDS ORDERED: *HR* Warfarin 5 MG TABLET PO ONE (18:00)
[2020-10-01] MEDS: Acetaminophen 325 MG TABLET PO PRN (20:02)
[2020-10-01] MEDS: Mag Hydrox/Al Hydrox/Simeth 30 ML UDC PO PRN (20:02)
[2020-10-01] MEDS ORDERED: Insulin LISPRO 300 UNITS/3 ML VIAL SUBQ SCH (21:00)
[2020-10-02 05:23] LABS: Hematocrit 37.1 % (35.3-44.9); Hemoglobin 12.4 g/dL (11.5-15.4); Mean Corpuscular HGB Conc 33.4 g/dL (31.6-35.5); Mean Corpuscular Volume 89.6 fL (83.0-100.0); Mean Platelet Volume 9.6 fL (9.4-12.4); Platelet Count 264 K/mcL (140-400); Red Blood Count 4.14 M/mcL (3.82-4.97); Red Cell Distribution Width 12.7 % (11.5-14.5); White Blood Count 6.1 K/mcL (4.3-11.1)
[2020-10-02 05:29] LABS: INR 1.4
[2020-10-02 05:45] LABS: Alanine Aminotransferase 27 Units/L (7-52); Albumin 4.1 g/dL (3.5-5.7); Albumin/Globulin Ratio 1.6 (1.1-2.2); Alkaline Phosphatase 44 Units/L (34-104); Aspartate Amino Transferase 28 Units/L (13-39); BUN/Creatinine Ratio 32 (6-26); Bilirubin,Total 0.4 mg/dL (0.3-1.0); Blood Urea Nitrogen 22 mg/dL (8-23); Calcium 10.1 mg/dL (8.6-10.3); Carbon Dioxide 26 mEq/L (23-29); Chloride 105 mEq/L (98-107); Globulin 2.5 g/dL (2.4-3.5); Glucose 158 mg/dL (70-105); Osmolality,Calculated 295 (280-300); Potassium 3.5 mEq/L (3.5-5.1); Sodium 139 mEq/L (136-145); Total Protein 6.6 g/dL (6.4-8.9); eGFR For African Americans > 60 (> 60); eGFR For Non-African Americans > 60 (> 60)
[2020-10-02 07:07] VITALS: BP 131/76
[2020-10-02] MEDS: Aspirin 81 MG TAB.CHEW PO SCH (09:13)
[2020-10-02] MEDS: Metoprolol XL (24 HR) Succ 25 MG TAB.ER.24H PO SCH (09:13)
[2020-10-02] MEDS: hydroCHLOROthiazide 25 MG TABLET PO SCH (09:13)
[2020-10-02] MEDS: Isosorbide MONOnitrate (24 HR) 30 MG TAB.ER.24H PO SCH (09:13)
[2020-10-02] MEDS: Insulin LISPRO 300 UNITS/3 ML VIAL SUBQ SCH (09:14)
[2020-10-02] MEDS ORDERED: *HR* Warfarin 5 MG TABLET PO ONE (18:00)
== END 2020-10-02 12:32 | disposition home or self-care (01) | DRG 247 ==
LOC: EMEROOARM 17:16 → 3BNU 17:16 → SUATTDRO 19:06 → 3BNU 19:37
PROVIDERS: ADMIT Internal Medicine; ATTEND Registered Nurse